=== PATIENT | female | born 2000 ===

== ENCOUNTER 2021-03-13 08:04 | Observation (INO) ==
[2021-03-13 04:43] LABS: Bilirubin,Urine Negative (Negative); Blood,Urine Negative (Negative); Clarity,Urine Turbid (Clear); Color,Urine Yellow (Yellow); Glucose,Urine (UA) Normal (Normal); Ketones,Urine Negative (Negative); Leukocyte Esterase,Urine Trace (Negative); Mucus,Urine Few per lpf (None-Few); Nitrite,Urine Positive (Negative); PH,Urine 6.5 pH Units (5.0-8.0); Protein,Urine >=300 mg/dL (Neg-Trace); RBC,Urine 0-3 per hpf (0-3); Specific Gravity,Urine 1.026 (1.010-1.025); Squamous Epithelial Cell,Urine Moderate per hpf (None-Few); Urobilinogen,Urine Normal (Normal)
[2021-03-13 04:55] LABS: Basophils # 0.1 K/mcL (0.0-0.2); Basophils % 0.5 %; Eosinophils # 0.6 K/mcL (0.0-0.6); Eosinophils % 4.3 %; Hematocrit 38.9 % (35.3-44.9); Hemoglobin 12.8 g/dL (11.5-15.4); Immature Granulocytes % 0.9 % (0-4); Lymphocytes # 2.4 K/mcL (0.6-4.6); Lymphocytes % 18.2 %; Mean Corpuscular HGB Conc 32.9 g/dL (31.6-35.5); Mean Corpuscular Hemoglobin 26.7 pg (28.0-33.3); Mean Corpuscular Volume 81.2 fL (83.0-100.0); Monocytes % 7.7 %; Neutrophils # 8.9 K/mcL (1.6-8.9); Nucleated Red Blood Cells 0.2 /100 WBC (0); Platelet Count 143 K/mcL (140-400); Red Blood Count 4.79 M/mcL (3.82-4.97); Red Cell Distribution Width 15.9 % (11.5-14.5); Segmented Neutrophils % 68.4 %; White Blood Count 12.9 K/mcL (4.3-11.1)
[2021-03-13 05:11] LABS: Alanine Aminotransferase 43 Units/L (7-52); Aspartate Amino Transferase 42 Units/L (13-39); BUN/Creatinine Ratio 14 (6-26); Blood Urea Nitrogen 8 mg/dL (6-20); Lactate Dehydrogenase 288 Units/L (140-271); Uric Acid 7.7 mg/dL (2.3-7.6); eGFR For African Americans > 60 (> 60); eGFR For Non-African Americans > 60 (> 60)
[2021-03-13 05:16] LABS: Protein/Creatinine Ratio,Urine 3.8 mg/mg (0.00-0.20)
[2021-03-13 06:43] LABS: Influenza A PCR Negative (Negative); Influenza B PCR Negative (Negative); Resp. Syncytial Virus PCR Negative (Negative)
[2021-03-13 06:45] LABS: SARS-CoV-2 by PCR (In House) Negative (Negative)
[~2021-03-13 08:04] MED LIST: *HR* Labetalol 20 MG/4 ML SYRINGE IVP ONE; Acetaminophen 325 MG TABLET PO ONE; Acetaminophen IV 500 MG/50 ML BAG IVPB ONE; Betamethasone Acet/SodPhos 30 MG/5 ML VIAL IM SCH; Calcium Gluconate 1,000 MG/10 ML VIAL IVP PRN; Magnesium Sulf 20 gm/SW 500mL 20 GM/500 ML IV.SOLN IVC SCH; NIFEdipine Immed Rel 10 MG CAPSULE PO SCH; Ondansetron 4 MG/2 ML VIAL IVP ONE; Ringers Solution, Lactated 1,000 ML ONE; niCARdipine 20 MG/200 ML MLS IVC SCH
[2021-03-13 08:43] VITALS: BP 134/73; PULSE 112
== END 2021-03-13 09:30 | disposition short-term general hospital (02) ==
LOC: 1NENULAB
PROVIDERS: ADMIT Obstetrics & Gynecology; ATTEND Obstetrics & Gynecology